=== PATIENT | female | born 1990 | race Caucasian/White ===

== ENCOUNTER → 2023-01-05 | Outpatient (CLI) | payer BC | LOC: DIA.ED 07:42 | DX: O24.419 Gestational diabetes mellitus in pregnancy, unspecified control (principal) | CPT/HCPCS: G0108 ==

== ENCOUNTER → 2023-01-20 | Outpatient (CLI) | payer BC | LOC: DIA.ED 07:45 | DX: O24.419 Gestational diabetes mellitus in pregnancy, unspecified control (principal) ==